=== PATIENT | female | born 1960 | race Caucasian/White ===

== ENCOUNTER 2024-02-23 18:28 | Emergency (ER) | payer MEDICARE, SELFPAY ==
--- NOTE | 2024-02-23 18:38 | ED.GENADULT ---
HPI - General Adult General Chief complaint: Urogenital-Female Stated complaint: Poss UTI Time Seen by Provider: 02/23/24 18:40 Source: patient, RN notes reviewed and old records reviewed Mode of arrival: ambulatory Limitations: no limitations History of Present Illness HPI narrative: 63-year-old female to [facility] with complaint dysuria, urinary frequency, urinary urgency, incontinence. Patient states that she is visiting from out of town. Patient states that she has a urologist back home who she sees for urinary incontinence. Patient states that approximately 1 month ago she was treated with Botox injections in her bladder in an attempt to treat the incontinence. Patient states, and I've had basically a month long UTI ever since. It feels like I'm peeing razor blades . patient states that she called her urologist this morning and was advised to be seen at an urgent care. Patient denies nausea, abdominal pain, flank pain, fever, hematuria. patient able to tolerate fluids by mouth. Patient in no acute distress. Related Data Home Medications Medication Instructions Recorded Confirmed atorvastatin 40 mg tablet mg 02/23/24 buspirone 7.5 mg tablet mg 02/23/24 cholecalciferol (vitamin D3) 1,250 02/23/24 mcg (50,000 unit) capsule clopidogrel 75 mg tablet mg 02/23/24 dexlansoprazole 60 mg mg 02/23/24 capsule,biphase delayed release dicyclomine 10 mg capsule mg 02/23/24 escitalopram oxalate 20 mg tablet mg 02/23/24 hydrocodone 7.5 mg-acetaminophen tablet 02/23/24 325 mg tablet methenamine hippurate 1 gram tablet g 02/23/24 metoprolol succinate 25 mg mg PO 02/23/24 tablet,extended release 24 hr metoprolol tartrate 50 mg tablet mg 02/23/24 montelukast 10 mg tablet mg 02/23/24 pregabalin 150 mg capsule mg 02/23/24 ropinirole 1 mg tablet mg 02/23/24 ropinirole 3 mg tablet mg 02/23/24 tizanidine 4 mg tablet mg 02/23/24 Allergies Allergy/AdvReac Type Severity Reaction Status Date / Time No Known Allergies Allergy Verified 02/23/24 19:07 Review of Systems Review of Systems: All systems reviewed & are unremarkable except as noted in HPI and below Constitutional: Constitutional: Reports no additional constitutional complaints Eyes: Eyes: Reports no additional eye complaints ENT: Reports system reviewed and no additional complaints, except as documented Cardiovascular: Cardiovascular: Reports no additional cardiovascular complaints, Denies chest pain and Denies dyspnea Respiratory: Respiratory: Reports no additional respiratory complaints, Denies cough and Denies dyspnea Genitourinary: Genitourinary: Reports as per HPI, Denies hematuria, Denies urinary frequency, Reports nocturia, Reports dysuria, Denies flank pain, Reports urinary incontinence, Denies urinary hesitancy and Reports urinary urgency Musculoskeletal: Musculoskeletal: Reports no additional musculoskeletal complaints Neurologic: Reports system reviewed and no additional complaints, except as documented Psychiatric: Psychiatric: Reports no additional psychiatric complaints PMFSH Comments At the time of my signature, I reviewed and agree with the nursing past medical, surgical, social, and family history. There is no relevant family history pertinent to the patient complaint. Exam Const: General: cooperative, healthy appearing, no acute distress, alert, anxious, uncomfortable and well nourished Nutritional Appearance: well nourished Orientation/consciousness: patient oriented x3 Limitations: no limitations HENMT: Head: normal to inspection Ears: external ears normal Face/Nose/Sinus: Normal external nose present, Normal nares present, normal facial exam, No erythema and No edema Face and sinus: normal facial exam, no erythema and no edema Mouth: Yes Normal oral and palatal mucosa present Eyes: General: appearance normal, both eyes and all related structures Neck: Neck: normal visual inspection, full ROM and no meninge
[2024-02-23 18:41] VITALS: BP 112/68; PULSE 75; RESP 16; TEMP 36.5; O2SAT 97
[2024-02-23 18:51] LABS: EDUAAPPEAR Cloudy; EDUABILI Negative; EDUABLOOD 1+; EDUACOLOR1 Yellow; EDUAGLUCOSE Negative; EDUAKETONE Negative; EDUALEUKO 3+; EDUANITRATE Positive; EDUAPROTEIN Negative; EDUAUROBILI 0.2
== END 2024-02-23 19:10 | disposition home or self-care (01) ==
PROVIDERS: Emergency Provider Nurse Practitioner Family
DX: N39.0 Urinary tract infection, site not specified (principal); B96.20 Unspecified Escherichia coli [E. coli] as the cause of diseases classified elsewhere; I25.110 Atherosclerotic heart disease of native coronary artery with unstable angina pectoris; E78.00 Pure hypercholesterolemia, unspecified; I10 Essential (primary) hypertension; I25.2 Old myocardial infarction; E11.9 Type 2 diabetes mellitus without complications; I73.9 Peripheral vascular disease, unspecified; Z95.5 Presence of coronary angioplasty implant and graft; Z98.84 Bariatric surgery status
CPT/HCPCS: 81003; 87077; 87086; 87088; 87186; 99203; G0463